=== PATIENT | female | born 1980 | race Caucasian/White ===

== ENCOUNTER 2016-05-28 11:29 | Emergency (ER) | payer OTHER | END 2016-05-28 12:05 | disposition home or self-care (01) | LOC: ER 11:29 | DX: M54.2 Cervicalgia (principal); G89.29 Other chronic pain; F41.9 Anxiety disorder, unspecified; F32.9 Major depressive disorder, single episode, unspecified; Z79.891 Long term (current) use of opiate analgesic; Z79.899 Other long term (current) drug therapy | CPT/HCPCS: 99070; 99282 ==

== ENCOUNTER 2016-07-06 17:53 | Emergency (ER) | payer OTHER | END 2016-07-06 20:07 | disposition home or self-care (01) | LOC: ER 17:53 | DX: S43.421A Sprain of right rotator cuff capsule, initial encounter (principal); M25.512 Pain in left shoulder; Z79.899 Other long term (current) drug therapy | CPT/HCPCS: 73030; 81025; 96372; 99070; 99283-25 ==

== ENCOUNTER 2016-08-08 12:01 | Emergency (ER) | payer OTHER | END 2016-08-08 14:29 | disposition home or self-care (01) | LOC: ER 12:01 | DX: L55.9 Sunburn, unspecified (principal); G89.29 Other chronic pain; M54.9 Dorsalgia, unspecified; Z79.891 Long term (current) use of opiate analgesic; Z79.899 Other long term (current) drug therapy | CPT/HCPCS: 96372; 99282-25 ==